=== PATIENT | female | born 1980 | race Caucasian/White ===

== ENCOUNTER 2020-11-22 12:38 | Outpatient (CLI) | payer BC | END 2020-11-22 12:39 | disposition home or self-care (01) | LOC: ULT 12:38 | PROVIDERS: ATTEND Internal Medicine Hematology & Oncology | DX: Z51.11 Encounter for antineoplastic chemotherapy (principal); C50.811 Malignant neoplasm of overlapping sites of right female breast | CPT/HCPCS: 93306 ==

== ENCOUNTER 2021-03-28 12:41 | Outpatient (CLI) | payer BC | END 2021-03-28 12:42 | disposition home or self-care (01) | LOC: ULT 12:41 | PROVIDERS: ATTEND Internal Medicine Hematology & Oncology | DX: Z51.11 Encounter for antineoplastic chemotherapy (principal); C50.811 Malignant neoplasm of overlapping sites of right female breast; Z79.899 Other long term (current) drug therapy; I07.1 Rheumatic tricuspid insufficiency | CPT/HCPCS: 93306 ==

== ENCOUNTER 2021-07-25 12:45 | Outpatient (CLI) | payer BC | END 2021-07-25 12:46 | disposition home or self-care (01) | LOC: ULT 12:45 | PROVIDERS: ATTEND Internal Medicine Hematology & Oncology | DX: Z51.11 Encounter for antineoplastic chemotherapy (principal); C50.811 Malignant neoplasm of overlapping sites of right female breast; Z79.899 Other long term (current) drug therapy | CPT/HCPCS: 93306 ==

== ENCOUNTER 2021-12-05 08:19 | Outpatient (CLI) | payer BC | END 2021-12-05 08:20 | disposition home or self-care (01) | LOC: CT 08:19 | PROVIDERS: ATTEND Internal Medicine Hematology & Oncology | DX: C50.811 Malignant neoplasm of overlapping sites of right female breast (principal); R91.1 Solitary pulmonary nodule | CPT/HCPCS: 71260 ==